=== PATIENT | female | born 1990 | race Two or more races ===

== ENCOUNTER 2022-09-18 08:10 | Inpatient (IN) | payer MEDICAID ==
[~2022-09-18] VITALS: Ht 168 cm; Wt 89.8 kg
[2022-09-18 09:12] LABS: Urine Bacteria FEW /hpf (None Seen); Urine Blood Negative /uL (Negative); Urine Specific Gravity 1.009 (1.001-1.035); Urine WBC 23 /hpf (0 - 5)
[2022-09-18 09:26] LABS: Alcohol, Urine < 3.0 mg/dL (0-10); Amphetamine Screen, Urine NEGATIVE (NEGATIVE); Cannabinoid Screen, Urine NEGATIVE (NEGATIVE)
[2022-09-18 09:28] LABS: Barbiturate Scree,Urine NEGATIVE (NEGATIVE); Benzodiazephine Screen, Urine NEGATIVE (NEGATIVE); Cocaine Screen, Urine NEGATIVE (NEGATIVE); Opiate Scree,Urine NEGATIVE (NEGATIVE); Phencyclidine Screen, Urine NEGATIVE (NEGATIVE)
[2022-09-18] MEDS ORDERED: miSOPROStol 50 MCG per PRE-CUT 1/2 TAB PO PRN (09:45)
[2022-09-18] MEDS ORDERED: WITCH HAZEL-GLYCERIN PAD TOP PRN (09:45)
[2022-09-18] MEDS ORDERED: PHISODERM TOP SOLN 240ML BTL TOP PRN (09:45)
[2022-09-18] MEDS ORDERED: BUTORPHANOL TARTRATE 2 MG/1 ML VIAL IV PRN ×2 (09:45)
[2022-09-18] MEDS ORDERED: PROMETHAZINE HCL 25 MG/ML 1ML IV PRN (09:45)
[2022-09-18] MEDS ORDERED: DERMOPLAST 60ML BOTTLE TOP PRN (09:45)
[2022-09-18] MEDS ORDERED: LIDOCAINE 2%HCL (LOCAL ANESTH.) INJ 20ML MDV IJ PRN (09:45)
[2022-09-18 10:16] LABS: Basophils # (auto) 0 10 ^3/uL (0-0.2); Basophils % (auto) 0.1 % (0.0-2.0); Eosinophils # (auto) 0 10 ^3/uL (0-0.8); Eosinophils % (auto) 0.1 % (0.0-7.0); Hemoglobin 12.8 g/dL (12.2-16.2); Lymphocytes # (auto) 1.2 10 ^3/uL (0.4-5.4); Lymphocytes % (auto) 16.3 % (10.0-50.0); Mean Corpuscular Hgb Conc. 33.6 g/dL (32.0-36.0); Mean Corpuscular Volume 86.4 fL (80.0-100.0); Monocytes # (auto) 0.3 10 ^3/uL (0-1.3); Monocytes % (auto) 4.4 % (0.0-12.0); Neutrophils # (auto) 5.9 10 ^3/uL (1.6-8.6); Neutrophils % (auto) 79.1 % (37.0-80.0); Nucleated Red Blood Cells % 0.1 %; Red Cell Distribution Width 14.3 % (11.8-14.3); White Blood Cell 7.4 10^3/uL (4.4-10.8)
[2022-09-18 10:30] LABS: Albumin 2.9 g/dL (3.4-5.0); Calcium 8.7 mg/dL (8.5-10.1); Potassium 4.4 mmol/L (3.5-5.1)
[2022-09-18 10:33] LABS: Bilirubin, Total 0.3 mg/dL (0.2-1.0); Total Protein 7.1 g/dL (6.4-8.2)
[2022-09-18 10:50] LABS: INR 0.9 (0.9-1.15); Partial Thromboplastin Time 25.6 sec (24.6-33.4)
[2022-09-18] MEDS ORDERED: LACT. RINGERS/OXYTOCIN 20UNITS 500 ML IV ONE ×2 (11:45→12:15)
[2022-09-18] MEDS ORDERED: TERBUTALINE SULFATE 1 MG/ML 1ML VIAL SC PRN (11:45)
[2022-09-18] MEDS ORDERED: LACT. RINGERS/OXYTOCIN 20UNITS 1,000 ML IV SCH (11:45)
[2022-09-18] MEDS: LACTATED RINGER'S 1,000 ML IV SCH ×3 (12:08→21:29)
[2022-09-18] MEDS ORDERED: NALOXONE HCL 0.4 MG/ML VIAL IV ONE (12:15)
[2022-09-18] MEDS ORDERED: ePHEDrine SULFATE 50 MG/ML AMP IV ONE (12:15)
[2022-09-18] MEDS: ROPIVACAINE HCL 200 ML EPI SCH (17:08)
[2022-09-18] MEDS: ceFAZolin 2 GM/D5W100ml 100 ML IV SCH (21:12)
[2022-09-18] MEDS ORDERED: ONDANSETRON HCL 4 MG/2 ML VIAL IV PRN (21:45)
[2022-09-18] MEDS ORDERED: CARBOPROST TROMETHAMINE 250 MCG/1ML VIAL IM PRN (21:45)
[2022-09-18] MEDS ORDERED: ACETAMINOPHEN 325 MG TAB PO PRN (21:45)
[2022-09-18] MEDS ORDERED: miSOPROStol 100 mcg TAB SL PRN (21:45)
[2022-09-18] MEDS ORDERED: diphenhdrAMINE HCL 50 MG/1 ML VL IV PRN (21:45)
[2022-09-18] MEDS ORDERED: MINERAL OIL TOPICAL 10ml TOP PRN (21:45)
[2022-09-18] MEDS ORDERED: METHYLERGONOVINE MALEATE 0.2 MG/ML AMP IM PRN (21:45)
[2022-09-18] MEDS ORDERED: TRANEXAMIC ACID 1,000 MG in SODIUM CHL 0.9% 100 ML IV PRN (21:45)
[2022-09-18] MEDS ORDERED: MINERAL OIL TOPICAL 10ml TOP ONE ×2 (23:12→23:32)
[2022-09-18] MEDS ORDERED: FAMOTIDINE (10MG/ML) 2ML VL IV ONE (23:45)
[2022-09-19] MEDS ORDERED: LACT. RINGERS/OXYTOCIN 20UNITS 1,000 ML IV SCH (01:15)
[2022-09-19] MEDS: LACTATED RINGER'S 1,000 ML IV SCH (03:47)
[2022-09-19] MEDS: ceFAZolin 2 GM/D5W100ml 100 ML IV SCH (05:42)
[2022-09-19] MEDS: DIPHENOXYLATE W/ATROPINE 2.5 MG TAB PO SCH ×2 (06:00)
[2022-09-19] MEDS ORDERED: AMPICILLIN SOD 2GM INJ 2 GM in SODIUM CHL 0.9% 100 ML IV SCH (07:00)
[2022-09-19] MEDS ORDERED: GENTAMICIN PER PHARMACY 0 ML IV SCH (07:00)
[2022-09-19] MEDS ORDERED: ACETAMINOPHEN 325 MG TAB PO PRN ×2 (07:00→09:45)
[2022-09-19 07:06] LABS: RPR Non Reactive (Non Reactive)
[2022-09-19] MEDS: ROPIVACAINE HCL 200 ML EPI SCH (07:19)
[2022-09-19] MEDS ORDERED: METHYLERGONOVINE MALEATE 0.2 MG/ML AMP IM ONE (08:50)
[2022-09-19 09:40] VITALS: BP 134/60
[2022-09-19] MEDS ORDERED: ONDANSETRON ODT 4 MG TAB PO PRN (09:45)
[2022-09-19] MEDS ORDERED: IBUPROFEN 600 MG TAB PO PRN (09:45)
[2022-09-19] MEDS ORDERED: GENTAMICIN SULFATE 300 MG in D5W 5% 100 ML IV SCH (10:00)
[2022-09-19 10:08] VITALS: BP 135/68
[2022-09-19 10:30] VITALS: BP 125/76
[2022-09-19] MEDS: ceFAZolin 1GM/50ML 50 ML IV SCH ×2 (13:57→22:08)
[2022-09-19 15:27] VITALS: BP 110/59
[2022-09-19 18:58] VITALS: BP 121/62
[2022-09-19] MEDS: DOCUSATE SOD 100 MG CAP PO SCH (22:08)
[2022-09-19 22:31] VITALS: BP 117/68
[2022-09-20 02:47] VITALS: BP 98/56
[2022-09-20] MEDS: ceFAZolin 1GM/50ML 50 ML IV SCH ×3 (05:31→22:01)
[2022-09-20 06:56] VITALS: BP 117/59
[2022-09-20 11:15] VITALS: BP 91/53
[2022-09-20 14:53] VITALS: BP 100/58
[2022-09-20 19:30] VITALS: BP 117/61
[2022-09-20] MEDS: DOCUSATE SOD 100 MG CAP PO SCH (22:01)
[2022-09-20 23:30] VITALS: BP 105/66
[2022-09-21 02:43] VITALS: BP 110/68
[2022-09-21] MEDS: ceFAZolin 1GM/50ML 50 ML IV SCH (05:35)
[2022-09-21 07:15] VITALS: BP 121/70
[2022-09-21 11:05] VITALS: BP_SYST 111; BP_SYST 135; BP_DIAS 65; BP_DIAS 68
== END 2022-09-21 13:55 | disposition home or self-care (01) | DRG 560 ==
LOC: LDRP 08:10 → OBSVTOIN 09:36 → LDRP 09:53
PROVIDERS: ADMIT Obstetrics & Gynecology; ATTEND Obstetrics & Gynecology
PROC: 10E0XZZ Delivery of Products of Conception, External Approach (ICD-10-PCS; principal; 2022-09-18)
PROC: 0KQM0ZZ Repair Perineum Muscle, Open Approach (ICD-10-PCS; 2022-09-18)
PROC: 0W8NXZZ Division of Female Perineum, External Approach (ICD-10-PCS; 2022-09-18)
DX: O60.14X0 Preterm labor third trimester with preterm delivery third trimester, not applicable or unspecified (principal); Z37.0 Single live birth; O70.1 Second degree perineal laceration during delivery; Z3A.38 38 weeks gestation of pregnancy
CPT/HCPCS: 36415; 59025; 59409; 62282; 80053; 80307; 81001; 81002; 84112; 85025; 85610; 85730; 86592; 86850; 86900; 86901; 94760; 94762; 96360; 96361; 96365; 96366; G0378; J0690; J2590; J7060